=== PATIENT | male | born 1965 | race Caucasian/White ===

== ENCOUNTER 2017-05-30 13:02 | Emergency (ER) | payer OTHER ==
[~2017-05-30] VITALS: Ht 175.3 cm; Wt 94.0 kg
[2017-05-30 13:08] VITALS: BP 132/90; PULSE 86; RESP 16; TEMP 98.4; O2SAT 98
--- NOTE | 2017-05-30 13:29 | PD ---
HPI Chief Complaint: Musculoskeletal Complaint Time Seen by Provider: 13:14 Travel History International Travel<30 days: No Contact w/Intl Traveler<30days: No Traveled to known affect area: No History of Present Illness HPI 52-year-old male that presents to the ED for evaluation of right wrist pain. Patient reports that he accidentally fell over some stairs. Patient her to stop his fall with his right hand. Also with his left hand. Per patient most of the pain is on the wrist on the right hand. Mainly on the ulnar and radial area. Per patient any flexion and extension makes it worse. Able to move the fingers fully. No elbow pain. No head injury. No shoulder pain. No Back or neck pain. Patient does have some pain in his left hand around the area of the left first digit. Some bruising noted but able to move it fully. No obvious bony deformity noted. Per patient the pain is significant on the right wrist. 8 out of 10. Denies any other medical issues. Hasn't taken anything for this. Injury occurred less than 2 hours ago. PFSH Past Medical History Cardiovascular Problems: Yes (B/P) ?: Not Social History Tobacco Use: No Allergies-Medications (Allergen,Severity, Reaction): Coded Allergies: iodine (Unverified Allergy, Mild, Swelling, 05/30/17) potassium iodide (Unverified Allergy, Mild, Swelling, 05/30/17) povidone-iodine (Unverified Allergy, Mild, Swelling, 05/30/17) sodium iodide (Unverified Allergy, Mild, Swelling, 05/30/17) sodium iodide (Unverified Allergy, Mild, Swelling, 05/30/17) Reported Meds & Prescriptions Reported Meds & Active Scripts Active Hydrocodone-Acetamin 5-325 mg (Hydrocodone/Acetaminophen) 5 Mg-325 Mg Tablet 1 Tab PO Q6HR PRN Diclofenac Sodium DR (Diclofenac Sodium) 75 Mg Tabdr 75 Mg PO BID PRN Reported Lisinopril 2.5 Mg Tab 2.5 Mg PO DAILY Review of Systems Except as stated in HPI: all other systems reviewed are Neg Physical Exam Narrative GENERAL: SKIN: Warm and dry. HEAD: Atraumatic. Normocephalic. EYES: Pupils equal and round. No scleral icterus. No injection or drainage. ENT: No nasal bleeding or discharge. Mucous membranes pink and moist. NECK: Trachea midline. No JVD. CARDIOVASCULAR: Regular rate and rhythm. RESPIRATORY: No accessory muscle use. Clear to auscultation. Breath sounds equal bilaterally. GASTROINTESTINAL: Abdomen soft, non-tender, nondistended. Hepatic and splenic margins not palpable. MUSCULOSKELETAL: Extremities without clubbing, cyanosis, or edema. No obvious deformities. She of the upper and lower extremities bilaterally. Patient does have pain with any flexion and extension of the right wrist. Tender to touch on the dorsal aspect. Mainly on the radius as well as the ulna. No obvious bony deformity noted however. No scapular or tenderness to palpation. Full range of motion of the digits. Sensation intact bilaterally. Patient does have bruising and swelling noted on the thenear aspect of the left hand. Able to move the finger fully with minimal discomfort. Good capillary refill. Full range of motion of all digits of the left hand and elbows as well as shoulders bilaterally. No lumbar, thoracic, cervical spine tenderness to palpation. NEUROLOGICAL: Awake and alert. No obvious cranial nerve deficits. Motor grossly within normal limits. Five out of 5 muscle strength in the arms and legs. Normal speech. PSYCHIATRIC: Appropriate mood and affect; insight and judgment normal. Data Data Last Documented VS Vital Signs Date Time Temp Pulse Resp B/P (MAP) Pulse Ox O2 Delivery O2 Flow Rate FiO2 05/30/17 13:08 98.4 86 16 132/90 (104) 98 Orders Orders Wrist, Complete ([id number]) (05/30/17 ) Acetamin-Hydrocod 325-10 Mg ([place] 10-32 (05/30/17 13:30) Splint Or Brace Apply/Monitor (05/30/17 14:03) Ed Discharge Order (05/30/17 14:03) [facility] Medical Decision Making Medical Screen Exam Complete: Yes Emergency Medical Condition: Yes Medical Record Reviewed: Yes Interpretation(s) xray showed intra articular radius and ulnar fracture Differential Diagnosis Fracture versus sprain versus strain versus bruise versus contusion Narrative Course 52-year-old male that presents to the ED for evaluation of right wrist injury. Patient was properly examined and was found to have signs and symptoms which appear to be concerning for possible bony injuries. X-rays were ordered. In regards to the left hand injury appears to be a bruise. Do not see any need for imaging at this time. Patient and family agree. Patient seems to be more concerned about the wrist. Patient given lortab. xray showed fracture of the wrist. Case was discussed in my attending Dr. Marquez was made aware of findings and recommends the patient in follow-up outpatient. Patient was told to follow with orthopedic doctor this week. Patient was given information for orthopedic doctors outpatient. Patient was given prescription for Lortab and sodium. Put on a splint. Close follow with orthopedic doctor. See ED worsening symptoms. Diagnosis Primary Impression: Wrist fracture, right Qualified Codes: S62.101A - Fracture of unspecified carpal bone, right wrist, initial encounter for closed fracture Referrals: Xavier Gautam MD, J. Richard Richard MD Patient Instructions: Narcotic given in the ED, General Instructions Additional Instructions: Take medications as prescribed. Follow-up with ortho. See ED for any worsening symptoms. Do not drink or drive while taking pain medication. Apply ice or heat as needed for pain Med/Other Pt SpecificInfo: Prescription(s) given Scripts Hydrocodone/Acetaminophen (Hydrocodone-Acetamin 5-325 mg) 5 Mg-325 Mg Tablet 1 TAB PO Q6HR Y for PAIN SCALE 1 TO 10, #14 Prov: Gaudencio Marquez MD 05/30/[address] (Diclofenac Sodium DR) 75 Mg Tabdr 75 MG PO BID Y for PAIN SCALE 1 TO 10, #20 TAB 0 Refills Prov: Gaudencio Marquez MD 05/30/17 Disposition: 01 DISCHARGE HOME Condition: Stable Bernabe Gautam May 30, 2017 13:29
[2017-05-30] MEDS ORDERED: ACETAMINOPHEN/HYDROcodone 325 MG/10 MG TAB PO ONE (13:30)
[2017-05-30] MEDS ORDERED: LISI2.5T3 PO (13:40)
--- NOTE | 2017-05-30 14:00 | RADRPT ---
EXAM DATE/TIME: 05/30/2017 13:47 [facility] COMPARISON: No previous studies available for comparison. INDICATIONS : Fell right wrist pain MEDICAL HISTORY : None. SURGICAL HISTORY : None. ENCOUNTER: Initial ACUITY: 1 day PAIN SCORE: 6/10 LOCATION: Right wrist FINDINGS: There is a comminuted, mildly displaced intra-articular fracture of the distal radius and a mildly di splaced ulnar styloid avulsion fracture. No dislocation of the wrist. No other fractures identified. CONCLUSION: 1. Comminuted intra-articular fracture of the distal radius without dislocation. Ulnar styloid fractu re. Bert Luis MD on May 30, 2017 at 13:57 Board Certified Radiologist. This report was verified electronically.
[2017-05-30] MEDS ORDERED: HYDR-3516 PO (14:05)
[2017-05-30] MEDS ORDERED: DICL75TA PO (14:05)
== END 2017-05-30 14:39 | disposition home or self-care (01) ==
LOC: PHEFT 13:02
DX: S62.101A Fracture of unspecified carpal bone, right wrist, initial encounter for closed fracture (principal); W10.9XXA Fall (on) (from) unspecified stairs and steps, initial encounter
CPT/HCPCS: 29125; 73110